=== PATIENT | male | born 1995 | race Two or more races ===

== ENCOUNTER 2020-08-08 22:23 | Emergency (ER) | payer OTHER ==
[~2020-08-08] VITALS: Ht 167.6 cm; Wt 61.2 kg
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
[2020-08-08 23:22] VITALS: BP 148/88
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
[2020-08-08] MEDS ORDERED: Lidocaine 1% Plain 30 ml INJ ONE (23:30)
[2020-08-08] MEDS ORDERED: Tetanus/Diptheria/Pertussis IM ONE (23:30)
[2020-08-08] MEDS ORDERED: Bacitracin Oint 15gm Tube TOPIC SCH (23:30)
--- NOTE | 2020-08-08 23:54 | NUR ---
ED Nurse Note: Assisted pt with washing both hands with soap and warm water in the sink. APplied bacitracin, gauze, and wrap to abrasions on hands.
--- NOTE | 2020-08-09 00:08 | Diagnostic Imaging Report ---
EXAM: CT Head Without Intravenous Contrast CLINICAL HISTORY: INJ TECHNIQUE: Axial computed tomography images of the head/brain without intravenous contrast. CTDI is 53.4 mGy and DLP is 1072.2 mGy-cm. One or more of the following dose reduction techniques were used: automated exposure control, adjustment of the mA and/or kV according to patient size, use of iterative reconstruction technique. COMPARISON: No relevant prior studies available. FINDINGS: Brain: No hemorrhage or mass effect. Ventricles: No hydrocephalus. Bones/joints: Unremarkable. Soft tissues: Unremarkable. Sinuses: Minimally coastal thickening. Mastoid air cells: Clear. IMPRESSION: No acute hemorrhage, hydrocephalus, or mass effect.
--- NOTE | 2020-08-09 00:23 | Diagnostic Imaging Report ---
EXAM: CT Head and Maxillofacial Without Intravenous Contrast CLINICAL HISTORY: INJ TECHNIQUE: Axial computed tomography images of the head/brain and face without intravenous contrast. CTDI is 15.3 mGy and DLP is 320 mGy-cm. One or more of the following dose reduction techniques were used: automated exposure control, adjustment of the mA and/or kV according to patient size, use of iterative reconstruction technique. COMPARISON: No relevant prior studies available. FINDINGS: Bones/joints: No acute fracture. Rightward deviated nasal septum. Soft tissues: Unremarkable. Sinuses: No acute sinusitis. Mastoid air cells: Unremarkable. No mastoid effusion. Orbits: Unremarkable. IMPRESSION: No acute fracture.
--- NOTE | 2020-08-09 00:28 | NUR ---
ED Nurse Note: Cleaned chin laceration with normal saline and irrigated with normal saline. Cleaned abrasion on forehead with saline and applied bacitracin and gauze. Dr. Vo suturing pt.
--- NOTE | 2020-08-09 00:46 | NUR ---
ED Nurse Note: Pt cleared by health care Provider for discharge. D/C instructions/prescription was given and explained to pt and pt verbalized understanding of teachings. ID band removed. Pt is AAO x4, ambulatory and left with all personal belongings.
[2020-08-09 00:47] VITALS: BP 128/74
== END 2020-08-09 00:50 | disposition home or self-care (01) ==
LOC: EMR 23:32
DX: S01.81XA Laceration without foreign body of other part of head, initial encounter (principal); S80.11XA Contusion of right lower leg, initial encounter; V00.831A Fall from motorized mobility scooter, initial encounter; Y93.I9 Activity, other involving external motion; Y92.9 Unspecified place or not applicable
CPT/HCPCS: 12011; 70450; 70486; 90471; 90715; 99284; J2001